=== PATIENT | female | born 1965 | race Caucasian/White ===

== ENCOUNTER 2018-05-21 13:19 | Emergency (ER) | payer BC ==
[~2018-05-21] VITALS: Ht 162.6 cm; Wt 78.0 kg
[2018-05-21] MEDS ORDERED: ketorolac tromethamine 15mg/ml inj. IM ONE (13:50)
[2018-05-21] MEDS ORDERED: ondansetron 4mg rapidly disintigrating tab PO ONE (13:50)
[2018-05-21 13:51] LABS: CLARITY,URINE SLIGHTLY CLOUDY (Clear); COLOR,URINE YELLOW (Yellow); GLUCOSE, URINE NEGATIVE (Neg); KETONES,URINE TRACE mg/dl (Neg); LEUKOCYTE ESTERASE ,URINE MODERATE (Neg); NITRITES, URINE NEGATIVE (Neg); OCCULT BLOOD,URINE MODERATE (Neg); PROTEIN,URINE TRACE mg/dl (Neg); UROBILINOGEN,URINE 0.2 E.U/dL (0.2-1.0)
[2018-05-21 13:52] LABS: UA COLLECTION TYPE CLN CATCH MIDSTREAM
[2018-05-21 14:05] LABS: SQUAMOUS EPITHELIAL CELL,UR MANY /LPF (FEW)
[2018-05-21 14:07] LABS: BACTERIA,URINE 2+ /HPF (Neg); WBC,URINE TNTC /HPF (0-4)
[2018-05-21 14:13] LABS: MUCUS STRANDS FEW /LPF (Neg)
[2018-05-21] MEDS ORDERED: normal saline 1000ML IV soln IVB ONE (15:05)
[2018-05-21] MEDS ORDERED: morphine 2 MG/ML inj. syringe IV ONE (16:00)
[2018-05-21] MEDS ORDERED: morphine 4 MG/ML inj SYRINge IV ONE (16:25)
[2018-05-21] MEDS ORDERED: HYDR-4383 PO (17:44)
[2018-05-21] MEDS ORDERED: FLO0.4C PO (17:44)
[2018-05-21 17:46] LABS: BASOPHILS # (AUTO) 0.1 X10'3 (0-0.2); BASOPHILS % (AUTO) 0.9 % (0-1); EOSINOPHILS # (AUTO) 0.4 X10'3 (0-0.9); EOSINOPHILS % (AUTO) 5.1 % (0-6); HEMATOCRIT 46.9 % (35.0-45.0); HEMOGLOBIN 15.2 g/dl (12.0-16.0); LYMPHOCYTES # (AUTO) 2.1 X10'3 (1.1-4.8); LYMPHOCYTES % (AUTO) 26.5 % (21-51); MEAN CORPUSCULAR HEMOGLOBIN 29.5 PG (27.0-31.0); MEAN CORPUSCULAR HGB CONC 32.3 % (33.0-36.5); MEAN CORPUSCULAR VOLUME 91.1 FL (78-98); MEAN PLATELET VOLUME 8.4 FL (7.4-10.4); MONOCYTES # (AUTO) 0.5 X10'3 (0-0.9); NEUTROPHILS # (AUTO) 4.8 X10'3 (1.8-7.7); NEUTROPHILS % (AUTO) 61.5 % (42-75); PLATELET COUNT 332 X10'3 (140-440); RED BLOOD COUNT 5.15 X10'6 (4.20-5.60); RED CELL DISTRIBUTION WIDTH 12.8 % (11.5-14.5); WHITE BLOOD COUNT 7.9 X10'3 (4.5-11.0)
[2018-05-21 17:48] VITALS: BP 134/85
[2018-05-21 17:48] LABS: ALANINE AMINOTRANSFERASE 30 U/L (12-78); ALBUMIN 3.8 G/DL (3.4-5.0); ALBUMIN/GLOBULIN RATIO 0.9 (1.1-1.5); ALKALINE PHOSPHATASE 102 IU/L (46-116); ANION GAP 12 (8-16); ASPARTATE AMINO TRANSFERASE 26 U/L (10-37); BILIRUBIN,TOTAL 0.3 MG/DL (0.1-1.0); BLOOD UREA NITROGEN 14 MG/DL (7-18); BUN/CREATININE RATIO 21.2 (6.6-38.0); CALCIUM 9.1 MG/DL (8.5-10.1); CHLORIDE 100 MMOL/L (99-107); CREATININE 0.66 MG/DL (0.40-0.90); GLUCOSE 124 MG/DL (70-104); SODIUM 137 MMOL/L (135-145); TOTAL CARBON DIOXIDE 24.8 MMOL/L (24-32); TOTAL PROTEIN 8.1 G/DL (6.4-8.2); eGFR > 90 ML/MIN
[2018-05-21 17:56] LABS: POTASSIUM 3.7 MMOL/L (3.5-5.1)
== END 2018-05-21 19:17 | disposition home or self-care (01) ==
LOC: ER 13:20
DX: N20.0 Calculus of kidney (principal); R11.2 Nausea with vomiting, unspecified; Z87.442 Personal history of urinary calculi; Z90.710 Acquired absence of both cervix and uterus; Z88.1 Allergy status to other antibiotic agents; Z79.899 Other long term (current) drug therapy
CPT/HCPCS: 36415; 74176; 76775; 80053; 81001; 85025; 96361; 96372; 96374; 99284; J1885; J2270; J7030

== ENCOUNTER 2018-10-22 12:58 | Outpatient (CLI) | payer BC ==
[~2018-10-22 12:58] MED LIST: HYDR-4383 PO
== END 2018-10-22 23:59 | disposition home or self-care (01) ==
LOC: CARD DIAG 12:58
PROVIDERS: ATTEND Internal Medicine Interventional Cardiology
DX: Q21.1 Atrial septal defect (principal); Z87.891 Personal history of nicotine dependence
CPT/HCPCS: 93306